=== PATIENT | female | born 1985 | race Caucasian/White ===

== ENCOUNTER 2021-12-20 13:37 | Outpatient (REF) | payer OTHER, SELFPAY ==
--- NOTE | 2021-12-20 13:00 | PAPFT_PTH ---
PATIENT: Octavia Moyer LOC: [facility] U#:[id number] AGE/SX: 36/F ROOM: RE12/20/[address]: GENARO Nava : 1985 BED: DIS: 12/20/2021 SPEC #: [id number] RECD: 12/20/21 18:16 STATUS: NATALIEIraj REQ #: [id number] HOLLY: 12/20/21 13:[address]: Eloise Albert DEPT: [facility] Cytology RECD BY: Yessy Lorenzana ENTERED: 12/20/21 18:16 SP TYPE: PAPFT TONEY DR: Darrick Nielsen MD Tissues: 1 - CX/ENDOCX FOR PAP SMEARS Procedures: PAP THIN PREP/[facility] Screening HPV DNA PROBE Comments: [id number]
== END 2021-12-20 13:38 | disposition home or self-care (01) ==
LOC: LBN 13:37
PROVIDERS: PCP Family Medicine; Visit Provider Nurse Practitioner Family
DX: Z12.4 Encounter for screening for malignant neoplasm of cervix (principal); Z11.51 Encounter for screening for human papillomavirus (HPV)
CPT/HCPCS: 88142; 87624

== ENCOUNTER 2022-03-16 19:45 | Emergency (ER) | payer OTHER, SELFPAY ==
--- NOTE | 2022-03-16 19:45 | DI.RAD_ITS ---
Exam(s) XR LUMBAR SPINE AP, LAT EXAM: XR LUMBAR SPINE AP, LAT CLINICAL HISTORY: fall pain. TECHNIQUE: 2D digital imaging was performed. COMPARISON: No exams were available for comparison FINDINGS: 3 views No evidence of fracture, listhesis, or pars interarticularis defects. All the disc spaces exhibit no rmal height.. No facet arthropathy evident. No scoliosis. SI joints unremarkable. Incidentally noted is an IUD in the central pelvis and surgical clips in the right upper quadrant whi ch are most probably from prior cholecystectomy. IMPRESSION: No significant radiographic findings on these three views of the lumbosacral spinal column. DATA REPOSITORY: RADIATION DOSE DELIVERED:
[2022-03-16 19:49] VITALS: BP 137/97; PULSE 78; RESP 18; TEMP 36.5; O2SAT 99
--- NOTE | 2022-03-16 19:59 | ED.GENADUL_ITS ---
Discharge Plan Disposition Patient Disposition: HOME Discharge Details Clinical Impression: Contusion of lower back Primary Care Provider: Darrick Nielsen ED Provider: Adonis Willis Home Meds and New Rx's Prescriptions: No Action clotrimazole-betamethasone 1-0.05 % cream 1 applic topical BID 10 Days Qty: 15 2RF Mirena 1 EACH intrauterine device 1 ea Intrauterine ONCE Qty: 1 Discharge Instructions Instructions: Contusion in Adults (ED) Additional Instructions: She will take Tylenol 1 g every 6 for the pain. He will also take ibuprofen 400 mg every 8 hours for the pain. May apply ice to the affected areas for the next 24 hours for comfort. After that I would recommend you apply some warm compresses. Range of motion exercises of the do not stiffen up. Expect to feel better within a couple days. Medical Decision Making X-ray of the LS Does not reveal any abnormalities. X-rays were interpreted by me. At this time the patient has diagnosis of back contusion. Treatment plan reviewed with patient. HPI General Date/Time Provider Initiated Documentation: 03/16/22 19:58 . HPI Narrative: 36-year-old lady lower back pain as well as right buttocks pain. Severity is moderate to severe. It is described as a ache. There is no radiation of the pain. This will happen approximately 45 minutes ago when she lost control of her horse while riding, the horse suddenly turned and she flew off the saddle landing on her buttocks and back. She was helmeted. No loss of consciousness she does not recall any head trauma but there was some scratches on the helmet. She denies any neck pain. She also denies any upper or mid back pain. Relieving factors are remaining still. EMS was summoned but patient refused transport. She has not taking any hkjm-eab-[id number] pain medications nor has any ice been applied to the injuries. No paresthesias and no incontinence. Related Data Home Medications Medication Instructions Recorded Confirmed levonorgestrel 20 mcg/24 hours (7 1 ea intrauterine ONCE #1 implant 02/02/15 03/16/22 yrs) 52 mg intrauterine device (Mirena) clotrimazole-betamethasone 1 1 applic topical BID 10 days #15 12/20/21 03/16/22 %-0.05 % topical cream grams Previous Rx's Medication Instructions Recorded clotrimazole-betamethasone 1 1 applic topical BID 10 days #15 12/20/21 %-0.05 % topical cream grams Allergies Allergy/AdvReac Type Severity Reaction Status Date / Time No Known Allergies Allergy Unverified 03/16/22 19:55 General Stated Complaint: Orthopedic MARI: 4 Review of Systems Narrative: Constitutional negative for fevers and chills. HEENT negative Respiratory no shortness of breath no chest wall pain. GI no nausea no vomiting no hematuria noted she has not gone to less than 50- MSK see HPI Skin no rashes Neuro no focal weakness Psych no anxiety Hematological not on blood thinners PFSH All Active Problems (Updated 03/16/22 @ 20:36 by Adonis Willis MD) Contusion of lower back (Acute) Preventative health care (Acute) Tobacco abuse (Acute) Loose stools (Acute) IUD surveillance (Acute 02/19/15) Medical History (Updated 03/16/22 @ 20:36 by Adonis Willis MD) Herpes genitalia Surgical History (Updated 12/20/21 @ 13:26 by Eloise Albert NP) Cholecystectomy Status post cholecystectomy Family History Mother Well adult Father Seizure disorder from TBI Social History Smoking/Tobacco Use Status: Current every day Smoking risk assessment performed?: Yes Alcohol Intake: never Drug use: Never Do you feel safe at home: Yes Exam Narrative Exam Narrative: Awake alert oriented x3 calm moderate distress. Was able to ambulate to the bathroom to give a urine sample. PERRLA EOMI MMM anicteric Neck supple Cardiovascular regular rhythm and rate Chest wall no crepitus, lungs are clear to auscultation bilaterally no CVAT She does have mild midline discomfort no step-off at L5 for L5. She also has some discomfort on palpation of the right buttocks. Skin is intact Neuro grossly intact Extremities full range of motion upper and lower extremities 5 strength Slight adequate mood and affect Course Vital Signs Vital signs: Vital Signs Temperature 36.5 C 03/16/22 19:49 Pulse 78 03/16/22 19:49 Respiratory Rate 18 03/16/22 19:49 Blood Pressure 137/97 H 03/16/22 19:49 Pulse Oximetry 99 03/16/22 19:49 Temperature 36.5 C 03/16/22 19:49 Temperature Source Tympanic 03/16/22 19:49 Pulse 78 03/16/22 19:49 Respiratory Rate 18 03/16/22 19:49 Respiratory Effort 03/16/22 19:53 Blood Pressure 137/97 H 03/16/22 19:49 Blood Pressure Position Sitting 03/16/22 19:49 Pulse Oximetry 99 03/16/22 19:49 Oxygen Delivery Method Room Air 03/16/22 19:49 Oxygen Flow Rate 0 03/16/22 19:49 Pain Level 6 03/16/22 19:49
--- NOTE | 2022-03-16 21:00 | DI.VRAD_ITS ---
PROCEDURE INFORMATION: Exam: XR Lumbosacral Spine Exam date and time: 03/16/2022 8:30 PM Age: 36 years old Clinical indication: Injury or trauma; Fall; Blunt trauma (contusions or hematomas) TECHNIQUE: Imaging protocol: XR of the lumbosacral spine. Views: 2 or 3 views. COMPARISON: No relevant prior studies available. FINDINGS: Bones/joints: No evidence of acute osseous injury of the lumbar spine. The vertebral body heights are preserved. Mild degenerative disc disease at L5-S1 with loss of disc height and endplate sclerosis. Soft tissues: Unremarkable. Intraperitoneal space: Status post cholecystectomy. Organs: Intrauterine device in place. IMPRESSION: 1. No evidence of acute osseous injury of the lumbar spine. 2. Mild degenerative disc disease at L5-S1 with loss of disc height and endplate sclerosis. Dictated and Authenticated by: Greg Rueda MD. Ordering:JIMENA Lamb MD
== END 2022-03-16 20:49 | disposition home or self-care (01) ==
PROVIDERS: Emergency Provider Emergency Medicine; PCP Family Medicine
DX: S30.0XXA Contusion of lower back and pelvis, initial encounter (principal); V80.010A Animal-rider injured by fall from or being thrown from horse in noncollision accident, initial encounter
CPT/HCPCS: 81025; 99283; 72100; 99282

== ENCOUNTER 2022-04-01 01:17 | Outpatient (CLI) | payer OTHER, SELFPAY ==
[2022-04-01 12:40] LABS: HCT 46.4 % (36.0-46.0); HGB 15.8 g/dL (11.2-15.7); MCH 32.6 pg (27.0-33.0); MCHC 34.1 % (32.0-36.0); MCV 96 fL (80-95); MPV 10.6 fL (8.0-11.0); Platelet Count 308 10^3/uL (130-400); RBC 4.85 10^6/uL (3.93-5.22); RDW 12.6 % (11.7-14.6); RDW-SD 44.5 fL; WBC 10.04 10^3/uL (4.4-10.8)
[2022-04-01 13:05] LABS: BUN 12 mg/dL (7-18); CREATININE 0.8 mg/dL (0.55-1.02); Calculated LDL 85 mg/dL (<100); Chloride 104 mmol/L (98-107); Cholesterol 175 mg/dL (<200); Glucose 90 mg/dL (74-106); HDL Cholesterol 43 mg/dL (40-60); Potassium 3.9 mmol/L (3.5-5.1); Sodium 140 mmol/L (136-145); Triglyceride 237 mg/dL (<150)
== END 2022-04-01 01:18 | disposition home or self-care (01) ==
LOC: LOS 01:17
PROVIDERS: PCP Family Medicine; Visit Provider Family Medicine
DX: E78.5 Hyperlipidemia, unspecified (principal); R53.83 Other fatigue; E87.1 Hypo-osmolality and hyponatremia
CPT/HCPCS: 36415; 80048; 80061; 85027

== ENCOUNTER 2024-03-16 09:12 | Emergency (ER) | payer OTHER, SELFPAY ==
[2024-03-16] VITALS (21 sets, daily range): BP systolic 112–148; BP diastolic 55–94; PULSE 73–107; RESP 13–24; TEMP 36.7; O2SAT 94–99
--- NOTE | 2024-03-16 09:00 | RT.EKG_ITS ---
APPROVED REPORT Exam: Resting ECG Reason for Exam: difficulty breathing Patient Location: E HR:89 bpm ECG Measurements Heart Rate 89 AXIS MS 149 P 58 QRSd 77 QRS 49 QT 342 T 26 QTc 418 Conclusion Sinus rhythm...normal P axis, V-rate 60- 99
--- NOTE | 2024-03-16 09:30 | DI.RAD_ITS ---
Exam(s) XR CHEST 2V PA LATERAL EXAM: XR CHEST 2V PA LATERAL CLINICAL HISTORY: cough. TECHNIQUE: 2D digital imaging was performed. COMPARISON: No exams were available for comparison FINDINGS: 2 views: Heart size is normal. The mediastinum is not widened. Lungs are clear. No infiltrates nor pleural effusions. IMPRESSION: No acute pulmonary findings. DATA REPOSITORY: RADIATION DOSE DELIVERED:
--- NOTE | 2024-03-16 09:32 | W.ED.GENAD ---
Discharge Plan Disposition Patient Disposition: Home Condition: Stable Discharge Details Clinical Impression: Acute bronchitis Primary Care Provider: Darrick Nielsen ED Provider: Jorgito House Home Meds and New Rx's Prescriptions: Continued benzonatate 100 mg capsule 100 mg PO TID PRN (Reason: cough) 7 Days Qty: 20 0RF albuterol sulfate 90 mcg/actuation HFA aerosol inhaler 2 puff inhalation Q6H PRN (Reason: shortness of breath or wheezing) Qty: 6.7 0RF (DME) Aerochamber MV Spacer See Rx Instructions .Route Qty: 1 0RF Rx Instructions: As directed Mirena 1 EACH intrauterine device 1 ea Intrauterine ONCE Qty: 1 Discharge Instructions Instructions: Acute Bronchitis (ED) Additional Instructions: Please allow for plenty of rest and drink plenty of fluids to stay hydrated. Please contact your primary care physician to arrange follow-up. Return to the ER immediately for any worsening or new concerning symptoms. Referrals: Darrick Nielsen MD [Primary Care Provider] - [facility] General Mode of arrival: ambulatory. Date/Time Provider Initiated Documentation: 03/16/24 09:32. Limitations to Documentation: no limitations. Information obtained by: patient. HPI Narrative: 38yo female presents with chief complaint of shortness of breath. Patient notes cough persistent over the past 10 days. She notes intermittent shortness of breath. She states she feels like her lungs are tight. She was seen at [facility] on 03/12/2024 and started on albuterol inhaler which she has been using. She states she is using this every 3 hours. She has no prior history of asthma. She does vape. She denies associated fever. No associated chest pain. No leg swelling or calf pain. Related Data Home Medications Medication Instructions Recorded Confirmed levonorgestrel 21 mcg/24 hr (up to 1 ea intrauterine ONCE #1 implant 02/02/15 03/16/24 8 years) 52 mg intrauterine device (Mirena) albuterol sulfate 90 mcg/actuation 2 puff inhalation Q6H PRN 03/12/24 03/16/24 aerosol inhaler shortness of breath or wheezing #6.7 grams benzonatate 100 mg capsule 100 mg PO TID PRN cough 7 days #20 03/12/24 03/16/24 caps inhalational spacing device #1 ea 03/12/24 03/16/24 (Aerochamber MV spacer) Previous Rx's Medication Instructions Recorded albuterol sulfate 90 mcg/actuation 2 puff inhalation Q6H PRN 03/12/24 aerosol inhaler shortness of breath or wheezing #6.7 grams benzonatate 100 mg capsule 100 mg PO TID PRN cough 7 days #20 03/12/24 caps inhalational spacing device #1 ea 03/12/24 (Aerochamber MV spacer) Allergies Allergy/AdvReac Type Severity Reaction Status Date / Time No Known Allergies Allergy Unverified 03/16/24 09:20 General Stated Complaint: RespSymp MARI: 3 Review of Systems All systems reviewed & are unremarkable except as noted in HPI and below Constitutional Constitutional: Denies fever(s) Respiratory Respiratory: Reports as per HPI Exam Const General: cooperative and no acute distress HENMT Mouth: moist mucous membranes Eyes Conjunctivae: normal conjunctivae Sclera: normal sclerae Neck Neck: trachea midline Resp Effort & Inspection: able to speak in complete sentences, cough, not labored, no respiratory distress and not tachypneic Auscultation: no rales, no rhonchi and wheezes (trace bilateral) Cardio Rate: regular rate and not tachycardic Rhythm: regular rhythm GI Palpation: soft, not firm, no guarding, no masses, not rigid and nontender Skin General skin exam: no rashes or lesions noted Neuro General: patient alert, patient awake, patient oriented x3 and tone normal Extrem General: no edema Psych Appearance: grossly normal Mental Status: mental status grossly normal Speech and Movement: speech and movement normal Course Vital Signs Vital signs: Vital Signs Temperature 36.7 C 03/16/24 09:15 Pulse 94 H 03/16/24 09:15 Respiratory Rate 03/16/24 09:15 Blood Pressure 148/94 H 03/16/24 09:15 Pulse Oximetry 97 03/16/24 09:15 Temperature 36.7 C 03/16/24 09:15 Temperature Source Skin 03/16/24 09:15 Pulse 94 H 03/16/24 09:15 Respiratory Rate 20 03/16/24 09:15 Blood Pressure 148/94 H 03/16/24 09:15 Pulse Oximetry 97 03/16/24 09:15 Oxygen Delivery Method Room Air 03/16/24 09:15 Oxygen Flow Rate 0 03/16/24 09:15 Pain Level 4 03/16/24 09:15 Medical Decision Making 89??38-year-old female with history of tobacco use by vaping, here with nonproductive cough persistent over the past 10 days, associated shortness of breath with wheezing and tightness. Patient has no pain. A screening EKG was reviewed and interpreted by me: Please report, sinus rhythm, normal axis, nondiagnostic. Patient was seen at [facility] on 03/12/2024 and started on Tessalon Perles and albuterol inhaler. She notes she has been having to use the inhaler frequently and does provide relief. I do appreciate trace bilateral wheeze. She does have intermittent cough. She is in no respiratory distress and is saturating well on room air. Suspect acute bronchitis. Consider superimposed bacterial infection and pneumonia. Concern for bronchial hyperresponsiveness. Plan to obtain chest x-ray. I will give DuoNeb treatment. 1105 --chest x-ray was reviewed and interpreted by radiology: No active disease in the chest. Patient reassessed and notes breathing easily. Patient saturating well in no respiratory distress. Suspect acute bronchitis. Usual customary discharge instructions were reviewed with the patient. Quality:SDOH Health Related Social Needs: No Data to Display PFSH All Active Problems (Updated 03/16/24 @ 11:04 by Jorgito House MD) Acute bronchitis (Acute) Preventative health care (Acute) Tobacco abuse (Acute) Loose stools (Acute) IUD surveillance (Acute 02/19/15) Medical History Herpes genitalia Surgical History Status post cholecystectomy Cholecystectomy Family History Mother Well adult Father Seizure disorder from TBI Social History Smoking/Tobacco Use Status: Current every day Tobacco Type: e-cigarettes Smoking risk assessment performed?: Yes Alcohol Intake: never Drug use: Never Substance use type: does not use Do you feel safe at home: Yes Do you feel safe in your relationship?: Yes
[2024-03-16] MEDS: Albuterol/Ipratropium 3 ML UPD VIAL UPD (09:49)
[2024-03-16 10:29] LABS: COVID-19 PCR Negative (Negative); Influenza A PCR Negative (Negative); Influenza B PCR Negative (Negative); RSV PCR Negative (Negative)
[2024-03-16 10:30] LABS: Source Nasopharynx
--- NOTE | 2024-03-16 10:48 | DI.VRAD_ITS ---
PROCEDURE INFORMATION: Exam: XR Chest Exam date and time: 03/16/2024 10:18 AM Age: 38 years old Clinical indication: Cough TECHNIQUE: Imaging protocol: Radiologic exam of the chest. Views: 2 views. COMPARISON: No relevant prior studies available. FINDINGS: Lungs: Clear. No consolidation or pulmonary edema. Pulmonary vasculature is normal in caliber. Pleural spaces: No pleural effusion or pneumothorax. Heart/Mediastinum: Heart size and cardiomediastinal contours are normal. Bones/joints: Unremarkable. IMPRESSION: No active disease in the chest. Dictated and Authenticated by: Ana Rosa Hinton MD. Ordering:PEDRO Bull MD
== END 2024-03-16 11:09 | disposition home or self-care (01) ==
PROVIDERS: Emergency Provider Student in an Organized Health Care Education/Training Program; PCP Family Medicine
DX: J20.9 Acute bronchitis, unspecified (principal); F17.290 Nicotine dependence, other tobacco product, uncomplicated
CPT/HCPCS: 87637; 93005; 94640; 99284; 71046; 93010; J7620

== ENCOUNTER 2024-03-22 11:57 | Emergency (ER) | payer OTHER, SELFPAY ==
--- NOTE | 2024-03-22 11:45 | RT.EKG_ITS ---
APPROVED REPORT Exam: Resting ECG Reason for Exam: Dyspnea Patient Location: E HR:82 bpm ECG Measurements Heart Rate 82 AXIS AR 151 P 62 QRSd 75 QRS 47 QT 353 T 43 QTc 414 Conclusion Sinus rhythm 82 normal axis no stemi
[2024-03-22 12:00] VITALS: BP 137/74; PULSE 77; RESP 16; TEMP 36.8; O2SAT 97
[2024-03-22 12:20] VITALS: BP 132/80; PULSE 75; RESP 18; O2SAT 97
--- NOTE | 2024-03-22 12:30 | DI.RAD_ITS ---
Exam(s) XR CHEST 2V PA LATERAL EXAM: XR CHEST 2V PA LATERAL CLINICAL HISTORY: coughing, wheezing, SOB. TECHNIQUE: 2D digital imaging was performed. COMPARISON: No exams were available for comparison FINDINGS: 2 views: Heart size is normal. The mediastinum is not widened. Lungs are clear. No infiltrates nor pleural effusions. Tiny calcified granuloma in the left upper lobe is unchanged. IMPRESSION: No acute pulmonary findings. DATA REPOSITORY: RADIATION DOSE DELIVERED:
--- NOTE | 2024-03-22 12:40 | W.ED.GENAD ---
Discharge Plan Disposition Patient Disposition: Home Condition: Stable Discharge Details Clinical Impression: Bilateral wheezing, Acute bronchitis Primary Care Provider: Darrick Nielsen ED Provider: Audrey Waldron Home Meds and New Rx's Prescriptions: New albuterol sulfate 90 mcg/actuation HFA aerosol inhaler 2 puff inhalation Q6H PRN (Reason: shortness of breath or wheezing) Qty: 6.7 0RF prednisone 20 mg tablet 20 mg PO DAILY Qty: 12 0RF Rx Instructions: 3 tabs x 2 days 2 tabs x 2 days 1 tab x 2 days benzonatate 200 mg capsule 200 mg PO TID PRN (Reason: cough) Qty: 14 0RF Continued albuterol sulfate 90 mcg/actuation HFA aerosol inhaler 2 puff inhalation Q6H PRN (Reason: shortness of breath or wheezing) Qty: 6.7 0RF (DME) Aerochamber MV Spacer See Rx Instructions .Route Qty: 1 0RF Rx Instructions: As directed Mirena 1 EACH intrauterine device 1 ea Intrauterine ONCE Qty: 1 Discharge Instructions Instructions: Bronchitis, Adult ED Additional Instructions: Your labs and imaging are reassuring here today. However, I am concerned that your cough has been lasting 17+ days and is progressively increasing, concerned that some of this is inflammatory mediated. To assist with that, prescription for steroids has been sent, please take as directed on the packaging. If you continue with the inhaler as previously prescribed. Please encourage hydration. Please continue your smoking cessation. Continue to elevate the your bed. You may use the Tessalon Perles as prescribed to help with cough. Please follow-up with your provider at the end of next week for reevaluation. If you develop any new or worsening symptoms please seek care urgently once again. Stand Alone Forms: Work Release Referrals: Darrick Nielsen MD [Primary Care Provider] - [facility] General Date/Time Provider Initiated Documentation: 03/22/24 12:05. Limitations to Documentation: no limitations. Information obtained by: patient, RN notes reviewed and old records reviewed. History of Present Illness 38 year old F presents to the emergency department with the chief complaint of cough, wheezing, SOB, described as moderate, Quality is described as aching (pleuritic pain with coughing, deep inspiration), and is localized to the chest. Patient started experiencing this day(s) (17) and it has been constant (worsening over past 2 days). Immobilization improves symptom(s), and Medication improves symptom(s), Movement worsens symptoms . Patient notes no other symptoms.. Patient did receive the following treatments prior to arrival, other (albuterol) Related Data Home Medications Medication Instructions Recorded Confirmed levonorgestrel 21 mcg/24 hr (up to 1 ea intrauterine ONCE #1 implant 02/02/15 03/22/24 8 years) 52 mg intrauterine device (Mirena) albuterol sulfate 90 mcg/actuation 2 puff inhalation Q6H PRN 03/12/24 03/22/24 aerosol inhaler shortness of breath or wheezing #6.7 grams inhalational spacing device #1 ea 03/12/24 03/22/24 (Aerochamber MV spacer) albuterol sulfate 90 mcg/actuation 2 puff inhalation Q6H PRN 03/22/24 aerosol inhaler shortness of breath or wheezing #6.7 grams benzonatate 200 mg capsule 200 mg PO TID PRN cough #14 caps 03/22/24 prednisone 20 mg tablet 20 mg PO DAILY #12 tabs 03/22/24 Previous Rx's Medication Instructions Recorded albuterol sulfate 90 mcg/actuation 2 puff inhalation Q6H PRN 03/12/24 aerosol inhaler shortness of breath or wheezing #6.7 grams inhalational spacing device #1 ea 03/12/24 (Aerochamber MV spacer) albuterol sulfate 90 mcg/actuation 2 puff inhalation Q6H PRN 03/22/24 aerosol inhaler shortness of breath or wheezing #6.7 grams benzonatate 200 mg capsule 200 mg PO TID PRN cough #14 caps 03/22/24 prednisone 20 mg tablet 20 mg PO DAILY #12 tabs 03/22/24 Allergies Allergy/AdvReac Type Severity Reaction Status Date / Time No Known Allergies Allergy Unverified 03/22/24 12:04 General Stated Complaint: SOB MARI: 3 Review of Systems Constitutional Constitutional: Reports as per HPI and Denies headache(s) Eyes Eyes: Reports as per HPI, Denies eye discharge and Denies irritation ENT Ears, Nose, Mouth, and Throat: Reports as per HPI and Denies headache(s) Cardiovascular Cardiovascular: Reports as per HPI Respiratory Respiratory: Reports as per HPI Gastrointestinal Gastrointestinal: Reports as per HPI, Denies abdominal pain, Denies change in bowel habits, Denies nausea and Denies vomiting Integumentary/Breasts Skin/Breast: Reports as per HPI and Denies rash Neurologic Neurologic: Reports as per HPI and Denies headache(s) Exam Const General: cooperative, healthy appearing, comfortable, no acute distress, well developed and well groomed Nutritional Appearance: average body habitus and well nourished Orientation: alert and awake [facility] Head: normal to inspection, normocephalic and atraumatic General nose exam: external nose normal and nares normal Face and sinus: normal facial exam and face symmetric Mouth: oral mucosae normal, lip normal, tongue normal, oropharynx normal and moist mucous membranes Teeth and gingiva: dentition normal Throat: posterior oropharynx normal, tonsils normal and uvula midline Eyes General: appearance normal, both eyes and all related structures Resp Effort & Inspection: normal respiratory effort, able to speak in complete sentences and no respiratory distress Auscultation: no rales, no rhonchi and wheezes (scattered) expiratory wheezes Cardio Rate: regular rate Rhythm: regular rhythm Heart Sounds: S1 normal and S2 normal Skin General skin exam: no rashes or lesions noted Neuro General: patient alert and patient awake Cognition: normal cognition Speech: speech normal Gait: normal gait Course Vital Signs Vital signs: Vital Signs Temperature 36.8 C 03/22/24 12:00 Pulse 77 03/22/24 12:00 Respiratory Rate 16 03/22/24 12:00 Blood Pressure 137/74 03/22/24 12:00 Pulse Oximetry 97 03/22/24 12:00 Temperature 36.8 C 03/22/24 12:00 Temperature Source Oral 03/22/24 12:00 Pulse 75 03/22/24 12:20 Respiratory Rate 18 03/22/24 12:20 Respiratory Effort Normal 03/22/24 12:16 Respiratory Depth Normal 03/22/24 12:16 Respiratory Pattern Normal 03/22/24 12:16 Blood Pressure 132/80 03/22/24 12:20 Blood Pressure Position Sitting 03/22/24 12:00 Pulse Oximetry 97 03/22/24 12:20 Oxygen Delivery Method Room Air 03/22/24 12:20 Oxygen Flow Rate 0 03/22/24 12:20 Pain Level 0 03/22/24 12:00 Medical Decision Making Patient is a pleasant 38 year old female presenting for reevaluation of cough, wheeze and SOB. Was here one week ago for the same. Now on day 17 of illness. States that 2 days ago, symptoms began to worsen. Endorsing dry cough, pleuritic pain, increased wheezing/SOB. States she has been using her inhaler that she was prescribeda fter being dx'ed with bronchititis last week, reports temporary improvement in symptoms but that it only lasts about 1hr. Not sleeping d/t cough, sitting upright. No recent fevers/chills. No GI illness, other symptoms have resolved. Vapes, has IUD. Has also had right sided calf pain, reports that this lasted a few days but is improving. No edema. On exam, patient appears non-toxic. She has scattered wheezing. VS WNL. No crackles/rhonchi. Normal cardiac exam, no LE edema or calf pain. while exam is m/c with bronchitis, she is not turning around like I would expect. She has had pleuritic pain, calf pain and risk factors for DVT, will screen with dimer. Will repeat CXR. If these are negative, will try oral steroids as her clinical exam is not suggestive of pna, more likely reactive cough. XR reivewed, no acute process. Labs reviewed, elevated WBC, otherwise no significant abnormality, d-dimer WNL. Leukocytosis likely stress response her hx and exam more consistent with reactive issue and bronchitis rather than bacterial infection. Feel that steroids approrpiate given course and progression. Will refill her inhaler, give cough suppressant to help with sleep. Encouraged close f/u with PCP. Return precautions discussed, all of her questions and concerns were addressed,t ambary are in agreement with this plan. Quality:SDOH Health Related Social Needs: No Data to Display PFSH All Active Problems (Updated 03/22/24 @ 14:18 by KORY Simms) Acute bronchitis (Acute) Bilateral wheezing (Acute) Acute bronchitis (Acute) Preventative health care (Acute) Tobacco abuse (Acute) Loose stools (Acute) IUD surveillance (Acute 02/19/15) Medical History Herpes genitalia Surgical History Status post cholecystectomy Cholecystectomy Family History Mother Well adult Father Seizure disorder from TBI Social History Smoking/Tobacco Use Status: Current every day Tobacco Type: e-cigarettes Smoking risk assessment performed?: Yes Alcohol Intake: never Drug use: Never Substance use type: does not use Do you feel safe at home: Yes Do you feel safe in your relationship?: Yes
[2024-03-22] MEDS: Albuterol/Ipratropium 3 ML UPD VIAL UPD (12:52)
[2024-03-22 13:04] LABS: Abs Immature Grans 0.08 10^3/uL (0.0-0.06); HCT 44.5 % (36.0-46.0); MCHC 33.7 % (32.0-36.0); MCV 95 fL (80-95); MPV 9.4 fL (8.0-11.0); Platelet Count 312 10^3/uL (130-400); RBC 4.69 10^6/uL (3.93-5.22); RDW 12.6 % (11.7-14.6); RDW-SD 43.7 fL; WBC 14.61 10^3/uL (4.4-10.8)
[2024-03-22 13:14] LABS: ALT 24 U/L (14-59); AST 26 U/L (15-37); Albumin 3.7 g/dL (3.4-5.0); Alkaline Phosphatase 116 U/L (46-116); Anion Gap 9.8 mmol/L (3-11); BUN 5 mg/dL (7-18); Bilirubin, Total 0.4 mg/dL (0.2-1.0); CO2 25.2 mmol/L (21.0-32.0); CREATININE 0.7 mg/dL (0.55-1.02); Calcium 8.9 mg/dL (8.5-10.1); Chloride 105 mmol/L (98-107); Estimated GFR 112.05 (mL/min/1.73m2); Glucose 97 mg/dL (74-106); Potassium 3.8 mmol/L (3.5-5.1); Sodium 140 mmol/L (136-145); Total Protein 7.2 g/dL (6.4-8.2)
[2024-03-22 13:23] LABS: Absolute Lymphocyte Count 2.05 10^3/uL (1.2-3.4); Absolute Monocyte Count 1.02 10^3/uL (0.1-0.8); Absolute Neutrophil Count 9.06 10^3/uL (1.2-6.7); Atypical Lymphocytes % 3 %
[2024-03-22 13:24] VITALS: BP 138/81; PULSE 113; RESP 20; O2SAT 96
[2024-03-22 13:24] LABS: Absolute Basophil Count 0.15 10^3/uL (0.0-0.2); Absolute Eosinophil Count 2.34 10^3/uL (0.0-0.7); Diff Comment Manual Differential; RBC Morphology Normal
[2024-03-22 13:30] LABS: D-Dimer 385 ng/mlFEU (<500)
[2024-03-22 14:14] VITALS: BP 118/80; PULSE 83; RESP 20; O2SAT 97
== END 2024-03-22 14:31 | disposition home or self-care (01) ==
PROVIDERS: Emergency Provider Physician Assistant; PCP Family Medicine
DX: J20.9 Acute bronchitis, unspecified (principal); R06.2 Wheezing; F17.290 Nicotine dependence, other tobacco product, uncomplicated
CPT/HCPCS: 80053; 93005; 94640; 99285; 71046; 83735; 85025; 85379; 93010; 99284; J7620

== ENCOUNTER 2024-04-19 02:14 | Outpatient (CLI) | payer OTHER, SELFPAY ==
[2024-04-19] MEDS: Levalbuterol HFA 15 GM INH 4 PUFF IH (14:16)
[2024-04-19] MEDS: Inhaler, Assist Device 1 EACH MC (14:16)
--- NOTE | 2024-04-25 13:29 | W.PFT ---
Date of service: 04/19/24 Time of Service: 13:01 Pulmonary Function Test Result Requesting Provider Vane Amin Indications: Wheezing Interpretation Spirometry: abnormal FEV1/FVC w/ abnormal FEV1 and reversibility after levoalbuterol. Lung Volumes: normal Diffusion Capacity: normal Impression Moderate obstructive ventilatory defect w/ reversibility to levoalbuterol. Normal lung volumes w/ no air trapping and normal diffusion. Flow volume curve suggests obstruction. Clinical Correlation therefore is recommended.
== END 2024-04-19 02:15 | disposition home or self-care (01) ==
LOC: RT 02:15
PROVIDERS: PCP Nurse Practitioner Family; Visit Provider Nurse Practitioner Family
DX: R06.2 Wheezing (principal)
CPT/HCPCS: 00123; 94060; 94726; 94729